=== PATIENT | male | born 1985 | race African-American/Black ===

== ENCOUNTER 2017-09-26 12:48 | Emergency (ER) | payer SELFPAY ==
[2017-09-26 12:56] VITALS: BP 134/67; PULSE 83; TEMP 98; BMI 22.8
--- NOTE | 2017-09-26 14:26 | PDOC ---
History of Present Illness - General Chief Complaint: Abscess Boil Stated Complaint: ABCESS Time Seen by Provider: 09/26/17 14:20 History Source: Patient Exam Limitations: No Limitations - History of Present Illness Initial Comments: 09/26/17 c/o of draining large abscess to right hip x 4 days . States partner suffers from same and has one on her left hip/abdomen. Denies fever, states came to head after approximately 4 days and drained a large amount of purulent drainage. Came for evaluation. Denies fever, denies any other history or any other areas of lesion 09/26/17 18:54 Timing/Duration: reports: just prior to arrival, getting worse Severity: Yes: mild, moderate Location: reports: torso (left hip) Respiratory Risk Factors: reports: no cause identified Associated Symptoms: reports: denies symptoms Past History - Travel Traveled outside of the country in the last 30 days: No Close contact w/someone who was outside of country & ill: No - Past Medical History Allergies/Adverse Reactions: Allergies Allergy/AdvReac Type Severity Reaction Status Date / Time No Known Allergies Allergy Verified 09/26/17 12:52 Home Medications: Ambulatory Orders Chlorhexidine Gluconate [Hibiclens For Decolonization -] 1 applic TP DAILY #1 bottle 09/26/17 Sulfamethoxazole/Trimethoprim [Bactrim *Ds*] 1 each PO BID #14 tablet 09/26/17 COPD: No Other medical history: denies. - Suicide/Smoking/Psychosocial Hx Smoking History: Current every day smoker Have you smoked in the past 12 months: Yes Number of Cigarettes Smoked Daily: 1 Information on smoking cessation initiated: No Review of Systems - Review of Systems Able to Perform ROS?: Yes Is the patient limited [place]an proficient: Yes Constitutional: Yes: Symptoms Reported, See HPI, Malaise HEENTM: Yes: See HPI. No: Symptoms Reported Respiratory: No: Symptoms reported Musculoskeletal: Yes: Symptoms Reported Integumentary: Yes: Symptoms Reported, See HPI, Flushing, Lesions All Other Systems: Reviewed and Negative *Physical Exam - Vital Signs Last Vital Signs Temp Pulse Resp BP Pulse Ox 98 F 83 19 134/67 99 09/26/17 12:52 09/26/17 12:52 09/26/17 12:52 09/26/17 12:52 09/26/17 12:52 - Physical Exam General Appearance: Yes: Nourished, Appropriately Dressed HEENT: positive: JOSE, Normal ENT Inspection, TMs Normal, Pharynx Normal Neck: positive: Supple. negative: Tender Respiratory/Chest: positive: Lungs Clear Musculoskeletal: negative: Normal Inspection Extremity: positive: Normal Capillary Refill Integumentary: positive: Other (open draining abscess to right lateral hip~ 2cm2 with purulent drainage and erythema at borders ) Neurologic: positive: mop maker II-XII NML intact, Fully Oriented, Alert, Normal Mood/ Affect, Normal Response, Motor Strength /5 Procedures - Incision and Drainage I&D Site: Left: Buttock (hip) Anesthesia: 1% Lidocaine Blade Size: 11 Iodinated Packin/4 in Complications: none Dressing: Yes Progress Note - Progress Note Progress Note: Right hip abscess, incised and drained, probable MRSA as partner suffers from same and have follow-up in 2 days for wound check and packing removal *DC/Admit/Observation/Transfer Diagnosis at time of Disposition: Abscess - Discharge Dispostion Disposition: HOME Condition at time of disposition: Stable Admit: No - Prescriptions Prescriptions: Chlorhexidine Gluconate [Hibiclens For Decolonization -] 1 applic TP DAILY #1 bottle Sulfamethoxazole/Trimethoprim [Bactrim *Ds*] 1 each PO BID #14 tablet - Referrals - Patient Instructions Printed Discharge Instructions: DI for Incision and Drainage of a Skin Abscess Additional Instructions: Rest, keep area elevated. Avoid strenuous activity or exercise until wound is healed Use hot soaks to area to bring more blood to the surface and encourage drainage May change dressings as needed to keep clean - trying to avoid removal of packing for 2 days. If packing needs to be changed, return to emergency department or with your followup physician for wound care and evaluation and repacking as needed If packing needs to be removed, then in 2 days, while in the shower remove dressing and quickly pull the packing taken out. Allow water from shower to wash area thoroughly for 2-3 minutes, and pat dry upon exit of shower and replace dressing. Change his dressing daily until the wound is completely healed. May use Tylenol or Motrin for mild pain relief Use stronger medications as directed and prescribed Continue all medications as prescribed Followup with private physician in 2-3 days for wound check Return to emergency Department for worsening swelling, pain, redness, fevers as needed Mefoxin resistant Staphylococcus aureus is a normal skin bacteria and is mutated to be resistant to penicillin type drugs. The wounds may be draining and there for contagious to other family members. Vigorous handwashing and avoidance of skin contact of draining lesions it is important . All family members Will need to be protected and perform thorough cleaning of linens /towels/clothing. To decontaminate household: Soak in bath; in one half cup of bleach in 1 full tub of water 2 times a week x3 weeks With own scrub Nylon use chlorohexidine soap twice a week to decontaminate skin Clean tub /toilet with bleach wipes after each use Do not use same linens/avoid contact until lesions are healed Followup with private physician/life manager Take all of Bactrim as directed May use ibuprofen or Tylenol for pain relief Followup with PMD in one week if no resolution Make appointment with life manager for evaluation when possible - Post Discharge Activity Forms/Work/School Notes: Back to Work
[2017-09-26] MEDS ORDERED: SULFAMETHOXAZOLE/TRIMETHOPRIM 800MG/160MG D.S. TABLET PO ONE (14:57)
[2017-09-26] MEDS ORDERED: SULFAMETHOXAZOLE/TRIMETHOPRIM 800MG/160MG D.S. TABLET ONE (15:03)
== END 2017-09-26 15:05 | disposition home or self-care (01) ==
LOC: JERFT 12:48
PROC: 0J9L0ZZ Drainage of Right Upper Leg Subcutaneous Tissue and Fascia, Open Approach (ICD-10-PCS; principal; 2017-09-26)
DX: L02.415 Cutaneous abscess of right lower limb (principal)
CPT/HCPCS: 99281-25